=== PATIENT | female | born 1970 | race Caucasian/White ===

== ENCOUNTER → 2016-07-20 | Outpatient (CLI) | payer OTHER ==
[~2016-07-20] MED LIST: CALCTAB43 PO; CELE10TA PO; D 50CAP PO; MULTCAP PO; NEXI40CA PO; SING10TA32 PO; VITA500C24 PO; XYZA5TAB2 PO
--- NOTE | 2016-07-20 09:06 | REPMRS ---
Patient History The patient states she had a clinical breast exam in 2015. Family history of breast cancer in mother at age 64. Priors done at [facility] Digital Mammo Screening Bilat: July 20, 2016 - Exam #: [id number] Bilateral CC and MLO view(s) were taken. Technologist: [place], Technologist Prior study comparison: January 10, 2014, digital bilateral screening mammo, performed at [facility]. January 05, 2011, digital bilateral screening mammo, performed at [facility]. December 18, 2009, digital bilateral screening mammo, performed at [facility]. FINDINGS: There are scattered fibroglandular densities. There has been no change in the appearance of the mammogram from the prior studies. There is a mild amount of scattered fibroglandular density which is fairly symmetric. There is no interval development of dominant mass, architectural distortion, or clustered microcalcification suggestive of malignancy. ASSESSMENT: BI-RADS/ACR category 1 mammogram. Negative. Recommendation Routine screening mammogram in 1 year (for women over age 40). This mammogram was interpreted with the aid of an FDA-approved computer-aided dectection system. Electronically Signed By: Micah Fairchild MD 07/20/16 0905
== END ==
LOC: M RAD 08:03
PROVIDERS: ATTEND Internal Medicine
DX: Z12.31 Encounter for screening mammogram for malignant neoplasm of breast (principal)

== ENCOUNTER → 2016-08-11 | Outpatient (REF) | payer OTHER ==
[2016-08-11 16:10] LABS: ALBUMIN/GLOBULIN RATIO 1.48 (1.00-1.93); ALKALINE PHOSPHATASE 66 U/L (45-117); ALT/SGPT 45 U/L (12-78); AMYLASE 24 U/L (25-115); ANION GAP 7 MEQ/L (8-16); AST/SGOT 16 U/L (15-37); BILIRUBIN,TOTAL 0.4 MG/DL (0.2-1.0); BLOOD UREA NITROGEN 13 MG/DL (7-18); CALCIUM LEVEL 8.8 MG/DL (8.5-10.1); CARBON DIOXIDE LEVEL 27 MEQ/L (21-32); CHLORIDE LEVEL 104 MEQ/L (98-107); CREATININE FOR GFR 0.83 MG/DL (0.55-1.02); GLOMERULAR FILTRATION RATE > 60.0 (>58); GLUCOSE, FASTING 116 MG/DL (70-105); POTASSIUM SERUM 4.1 MEQ/L (3.5-5.1); SODIUM LEVEL 138 MEQ/L (136-145); TOTAL PROTEIN 6.7 GM/DL (6.4-8.2)
== END ==
LOC: M SFHCPLAZ 12:23
PROVIDERS: ATTEND Internal Medicine
DX: R11.2 Nausea with vomiting, unspecified (principal)

== ENCOUNTER → 2016-08-19 | Outpatient (CLI) | payer OTHER ==
[~2016-08-19] MED LIST changes: +GASTROGRAFIN SOLUTION 30ML (Q9963) As Ordered ONE; +ISOVUE-370 76% 100ML VIAL (Q9967) As Ordered ONE
--- NOTE | 2016-08-20 05:16 | REP ---
Clinical: Abdominal pain with vomiting. Technique: Axial contrast enhanced images from the lung bases to the pubic symphysis using oral and 100 ml Isovue 370 intravenous contrast material with precontrast images of the abdomen as well as coronal and sagittal re-formations. Comparison: 09/04/2011. Findings: Lung bases are relatively clear. Visualized heart and pericardium normal. Liver, spleen, pancreas, bilateral adrenal glands are normal. Kidneys demonstrate solitary 1 mm nonobstructing renal calculi bilaterally without perinephric stranding or hydroureteronephrosis. The enteric system is without obstruction or acute inflammatory process. Normal terminal ileum and appendix identified in the right lower quadrant. Pelvis demonstrates normal bladder and age-appropriate prostate/seminal vesicles. Sigmoid diverticulosis noted without acute diverticulitis. No ascites. No free air. No intraperitoneal or retroperitoneal adenopathy. Abdominal aorta and vasculature appears normal. Surrounding musculoskeletal structures are intact. Impression: 1. Bilateral 1 mm nonobstructing renal calculi. 2. Sigmoid diverticula without acute diverticulitis. 3. No further acute intra-abdominal or pelvic pathology appreciated. Signed by Kong Bowie MD 08/20/2016 05:07 A
== END ==
LOC: M RAD 15:46
PROVIDERS: ATTEND Internal Medicine
DX: R10.9 Unspecified abdominal pain (principal); R11.10 Vomiting, unspecified

== ENCOUNTER → 2017-03-01 | Outpatient (REF) | payer OTHER | LOC: M LAB REF 18:53 | DX: N30.00 Acute cystitis without hematuria (principal) ==

== ENCOUNTER → 2017-04-01 | Outpatient (CLI) | payer OTHER | LOC: M RAD 16:12 | DX: J32.0 Chronic maxillary sinusitis (principal) | CPT/HCPCS: 70486 ==

== ENCOUNTER → 2017-06-27 | Outpatient (REF) | payer OTHER | LOC: M SFHCPLAZ 16:56 | DX: N20.0 Calculus of kidney (principal) | CPT/HCPCS: 82360 ==

== ENCOUNTER → 2018-01-18 | Outpatient (REF) | payer OTHER ==
[2018-01-18 13:38] LABS: ESTIMATED AVERAGE GLUCOSE 134 MG/DL (60-110); HEMOGLOBIN A1c 6.3 %
[2018-01-18 13:55] LABS: ALBUMIN/GLOBULIN RATIO 1.21 (1.00-1.93); ALKALINE PHOSPHATASE 73 U/L (45-117); ALT/SGPT 33 U/L (12-78); ANION GAP 6 MEQ/L (8-16); AST/SGOT 19 U/L (7-37); BILIRUBIN,TOTAL 0.3 MG/DL (0.2-1.0); BLOOD UREA NITROGEN 22 MG/DL (7-18); CALCIUM LEVEL 8.9 MG/DL (8.5-10.1); CARBON DIOXIDE LEVEL 28 MEQ/L (21-32); CHLORIDE LEVEL 105 MEQ/L (98-107); CHOLESTEROL LEVEL 180 MG/DL (<200); CREATININE FOR GFR 0.78 MG/DL (0.55-1.30); GLOMERULAR FILTRATION RATE > 60.0 (>58); GLUCOSE, FASTING 77 MG/DL (70-100); HDL CHOLESTEROL 48 MG/DL (>40); LDL CHOLESTEROL 115 MG/DL (<100); NON-HDL-C 132 MG/DL; POTASSIUM SERUM 4.4 MEQ/L (3.5-5.1); SODIUM LEVEL 139 MEQ/L (136-145); TOTAL 25(OH) VITAMIN D 80.8 NG/ML (30.0-100.0); TOTAL PROTEIN 7.3 GM/DL (6.4-8.2); TRIGLYCERIDES LEVEL 84 MG/DL (<150)
== END ==
LOC: M SFHCPLAZ 11:14
DX: Z00.00 Encounter for general adult medical examination without abnormal findings (principal); R73.01 Impaired fasting glucose; E55.9 Vitamin D deficiency, unspecified
CPT/HCPCS: 84443

== ENCOUNTER → 2018-09-14 | Outpatient (CLI) | payer OTHER ==
[~2018-09-14] MED LIST changes: -CALCTAB43 PO; +CALCTAB74 PO; -GASTROGRAFIN SOLUTION 30ML (Q9963) As Ordered ONE; -ISOVUE-370 76% 100ML VIAL (Q9967) As Ordered ONE
[2018-09-14 16:56] LABS: FREE T4 0.94 NG/DL (0.76-1.46); THYROID STIMULATING HORMONE 1.44 uIU/ML (0.358-3.740)
== END ==
LOC: M LAB 15:27
PROVIDERS: ATTEND Internal Medicine Gastroenterology
DX: K58.2 Mixed irritable bowel syndrome (principal)

== ENCOUNTER 2018-11-10 10:18 | Day surgery (SDC) | payer OTHER ==
[~2018-11-10] VITALS: Ht 152.4 cm; Wt 83.5 kg
[~2018-11-10 10:18] MED LIST changes: +CALCCAP4 PO; +GLUC500T PO; +LEVOTAB10 PO; +LINZ145C PO; +NS 1,000 ML IV ONE
[2018-11-10] MEDS ORDERED: fentaNYL 100 MCG/2 ML INJECTION (J3010) As Ordered ONE (12:03)
[2018-11-10] MEDS ORDERED: PROPOFOL 200 MG/20 ML VIAL As Ordered ONE ×2 (12:04→12:20)
[2018-11-10] MEDS ORDERED: LIDOCAINE 2% INJ 100 MG/5 ML SDV (FOR ANES.) As Ordered ONE (12:05)
--- NOTE | 2018-11-10 12:54 | ROOR ---
Patient Name: Kavya Christina Procedure Date: 11/10/2018 12:20 PM Date of : 1970 Age: 48 Room: [facility] Gender: Female Note Status: Finalized Procedure: Upper GI endoscopy Indications: Abdominal pain, Suspected irritable bowel syndrome Providers: Lino CHA MD Referring MD: Ashok Rae MD Requesting Provider: Medicines: Monitored Anesthesia Care Complications: No immediate complications. Procedure: Pre-Anesthesia Assessment: - The heart rate, respiratory rate, oxygen saturations, blood pressure, adequacy of pulmonary ventilation, and response to care were monitored throughout the procedure. The Endoscope was introduced through the mouth, and advanced to the third part of duodenum. The upper GI endoscopy was accomplished without difficulty. The patient tolerated the procedure well. Findings: The esophagus was normal. The stomach was normal. The examined duodenum was normal. Biopsies for histology were taken with a cold forceps in the second portion of the duodenum and in the third portion of the duodenum for evaluation of celiac disease. Impression: - Normal esophagus. - Normal stomach. - Normal examined duodenum. - Biopsies were taken with a cold forceps for evaluation of celiac disease. Recommendation: - Perform a colonoscopy today. - Telephone endoscopist for pathology results in 2 weeks. Lino Cha MD Lino CHA MD 11/10/2018 12:53:33 PM Electronically signed by Lino CHA MD Number of Addenda: 0 Note Initiated On: 11/10/2018 12:20 PM Estimated Blood Loss: Estimated blood loss: none.
--- NOTE | 2018-11-10 12:59 | ROOR ---
Patient Name: Kavya Christina Procedure Date: 11/10/2018 12:20 PM Date of : 1970 Age: 48 Room: [facility] Gender: Female Note Status: Finalized Procedure: Colonoscopy Indications: Generalized abdominal pain, Irritable bowel syndrome with constipation, Mixed irritable bowel syndrome, Change in bowel habits Providers: Lino CHA MD Referring MD: Ashok Rae MD Requesting Provider: Medicines: Monitored Anesthesia Care Complications: No immediate complications. Procedure: Pre-Anesthesia Assessment: - The heart rate, respiratory rate, oxygen saturations, blood pressure, adequacy of pulmonary ventilation, and response to care were monitored throughout the procedure. The Colonoscope was introduced through the anus and advanced to 10 cm into the ileum. The colonoscopy was performed without difficulty. The patient tolerated the procedure well. The quality of the bowel preparation was adequate. Findings: The perianal and digital rectal examinations were normal. A 5 mm polyp was found in the splenic flexure. The polyp was sessile. The polyp was removed with a cold snare. Resection and retrieval were complete. Internal hemorrhoids were found during retroflexion. The hemorrhoids were medium-sized. The exam was otherwise normal throughout the examined colon. The terminal ileum appeared normal. Biopsies for histology were taken with a cold forceps from the entire colon for evaluation of microscopic colitis. Impression: - One 5 mm polyp at the splenic flexure, removed with a cold snare. Resected and retrieved. - Internal hemorrhoids. - The colon is somewhat redundant, but otherwise normal - The examined portion of the ileum was normal. - Biopsies were taken with a cold forceps from the entire colon for evaluation of microscopic colitis. Recommendation: - Repeat colonoscopy in 5 years for surveillance. - Telephone endoscopist for pathology results in 2 weeks. - To increase effect of Linzess, you can change Linzess dosing to WITH Meal/Food. Lino Cha MD Lino CHA MD 11/10/2018 12:58:53 PM Electronically signed by Lino CHA MD Number of Addenda: 0 Note Initiated On: 11/10/2018 12:20 PM Estimated Blood Loss: Estimated blood loss: none.
[2018-11-10 13:15] VITALS: BP 128/76
== END 2018-11-10 13:27 | disposition home or self-care (01) ==
LOC: M OPP 10:18
PROVIDERS: ATTEND Internal Medicine Gastroenterology
DX: D12.3 Benign neoplasm of transverse colon (principal); K64.8 Other hemorrhoids; R10.84 Generalized abdominal pain; K58.1 Irritable bowel syndrome with constipation; K58.2 Mixed irritable bowel syndrome; R19.4 Change in bowel habit; E11.9 Type 2 diabetes mellitus without complications; Z79.84 Long term (current) use of oral hypoglycemic drugs; Z79.899 Other long term (current) drug therapy; Z88.8 Allergy status to other drugs, medicaments and biological substances; Z91.040 Latex allergy status
CPT/HCPCS: 43239; 45380; 45385; 88305; J3010

== ENCOUNTER → 2019-01-19 | Outpatient (REF) | payer OTHER ==
[~2019-01-19] MED LIST changes: -NS 1,000 ML IV ONE
[2019-01-19 09:36] LABS: HEMATOCRIT 45.8 % (36.0-47.0); HEMOGLOBIN 14.3 g/dl (12.0-15.5); MEAN CORPUSCULAR HEMOGLOBIN 29.1 pg (27.0-33.0); MEAN CORPUSCULAR HGB CONC 31.2 g/dl (32.0-36.5); MEAN CORPUSCULAR VOLUME 93.1 fl (80.0-96.0); PLATELET COUNT, AUTOMATED 309 10^3/uL (150-450); RED BLOOD COUNT 4.92 10^6/uL (4.00-5.40); WHITE BLOOD COUNT 10.2 10^3/uL (4.0-10.0)
[2019-01-19 10:13] LABS: ALBUMIN 3.9 GM/DL (3.2-5.2); ALT/SGPT 32 U/L (12-78); AMYLASE 23 U/L (25-115); BILIRUBIN,TOTAL 0.3 MG/DL (0.2-1.0); BLOOD UREA NITROGEN 21 MG/DL (7-18); CALCIUM LEVEL 9.7 MG/DL (8.5-10.1); CARBON DIOXIDE LEVEL 29 MEQ/L (21-32); CHLORIDE LEVEL 107 MEQ/L (98-107); CHOLESTEROL LEVEL 179 MG/DL (<200); CHOLESTEROL RISK RATIO 3.509 (<5); CREATININE FOR GFR 0.71 MG/DL (0.55-1.30); GLOMERULAR FILTRATION RATE > 60.0 (>58); GLUCOSE, FASTING 106 MG/DL (70-100); HDL CHOLESTEROL 51 MG/DL (>40); HEMOGLOBIN A1c 6.1 %; LDL CHOLESTEROL 109 MG/DL (<100); LIPASE 132 U/L (73-393); NON-HDL-C 128 MG/DL; POTASSIUM SERUM 4.9 MEQ/L (3.5-5.1); SODIUM LEVEL 139 MEQ/L (136-145); TOTAL PROTEIN 7.1 GM/DL (6.4-8.2); TRIGLYCERIDES LEVEL 93 MG/DL (<150)
== END ==
LOC: M SFHCPLAZ 08:08
PROVIDERS: ATTEND Internal Medicine
DX: Z00.00 Encounter for general adult medical examination without abnormal findings (principal); R73.01 Impaired fasting glucose; R10.13 Epigastric pain

== ENCOUNTER → 2020-01-22 | Outpatient (REF) | payer OTHER ==
[2020-01-22 11:02] LABS: ALBUMIN 3.9 GM/DL (3.2-5.2); ALT/SGPT 20 U/L (12-78); BILIRUBIN,TOTAL 0.3 MG/DL (0.2-1.0); BLOOD UREA NITROGEN 16 MG/DL (7-18); CALCIUM LEVEL 9.3 MG/DL (8.5-10.1); CARBON DIOXIDE LEVEL 30 MEQ/L (21-32); CHLORIDE LEVEL 108 MEQ/L (98-107); CREATININE FOR GFR 0.82 MG/DL (0.55-1.30); GLOMERULAR FILTRATION RATE > 60.0 (>51); GLUCOSE, FASTING 114 MG/DL (70-100); POTASSIUM SERUM 4.7 MEQ/L (3.5-5.1); SODIUM LEVEL 141 MEQ/L (136-145); TOTAL PROTEIN 7.3 GM/DL (6.4-8.2)
[2020-01-22 11:09] LABS: HEMOGLOBIN A1c 6.1 %
== END ==
LOC: M SFHCPLAZ 08:10
PROVIDERS: ATTEND Internal Medicine
DX: R73.01 Impaired fasting glucose (principal)

== ENCOUNTER → 2021-01-26 | Outpatient (REF) | payer OTHER | LOC: M SFHCPLAZ 07:58 | PROVIDERS: ATTEND Internal Medicine | DX: Z00.00 Encounter for general adult medical examination without abnormal findings (principal); R19.4 Change in bowel habit; R73.01 Impaired fasting glucose; L74.512 Primary focal hyperhidrosis, palms ==

== ENCOUNTER → 2021-01-26 | Outpatient (CLI) | payer OTHER ==
[2021-01-26 13:35] LABS: BASO # 0.1 10^3/uL (0.0-0.2); BASO % 0.6 % (0.0-1.0); EOS # 0.2 10^3/uL (0.0-0.5); HEMATOCRIT 43.1 % (36.0-47.0); HEMOGLOBIN 13.9 g/dl (12.0-15.5); LYMPH # 2.6 10^3/uL (1.5-5.0); LYMPH % 29.4 % (24.0-44.0); MEAN CORPUSCULAR HEMOGLOBIN 29.5 pg (27.0-33.0); MEAN CORPUSCULAR HGB CONC 32.3 g/dl (32.0-36.5); MEAN CORPUSCULAR VOLUME 91.5 fl (80.0-96.0); MONO # 0.5 10^3/uL (0.0-0.8); MONO % 6.1 % (2.0-8.0); NEUTROPHILS # 5.4 10^3/uL (1.5-8.5); NEUTROPHILS % 61.6 % (36.0-66.0); PLATELET COUNT, AUTOMATED 294 10^3/uL (150-450); RED BLOOD COUNT 4.71 10^6/uL (4.00-5.40); WHITE BLOOD COUNT 8.7 10^3/uL (4.0-10.0)
[2021-01-26 14:30] LABS: ALBUMIN 3.5 GM/DL (3.2-5.2); ALT/SGPT 30 U/L (12-78); BILIRUBIN,TOTAL 0.3 MG/DL (0.2-1.0); BLOOD UREA NITROGEN 14 MG/DL (7-18); CALCIUM LEVEL 8.9 MG/DL (8.5-10.1); CARBON DIOXIDE LEVEL 25 MEQ/L (21-32); CHLORIDE LEVEL 109 MEQ/L (98-107); CHOLESTEROL LEVEL 168 MG/DL (<200); CHOLESTEROL RISK RATIO 3.652 (<5); CREATININE FOR GFR 0.72 MG/DL (0.55-1.30); GLOMERULAR FILTRATION RATE > 60.0 (>51); GLUCOSE, FASTING 113 MG/DL (70-100); HDL CHOLESTEROL 46 MG/DL (>40); LDL CHOLESTEROL 109 MG/DL (<100); NON-HDL-C 122 MG/DL; POTASSIUM SERUM 4.6 MEQ/L (3.5-5.1); SODIUM LEVEL 140 MEQ/L (136-145); THYROID STIMULATING HORMONE 0.693 uIU/ML (0.358-3.740); TOTAL PROTEIN 6.7 GM/DL (6.4-8.2); TRIGLYCERIDES LEVEL 64 MG/DL (<150)
[2021-01-26 14:34] LABS: MALB URINE SIEMENS 38.4 MG/L; MAU/CREAT RATIO 15.4 MCG/MG (0.0-30.0)
== END ==
LOC: M PLALAB 08:19
PROVIDERS: ATTEND Internal Medicine
DX: Z00.00 Encounter for general adult medical examination without abnormal findings (principal); R73.01 Impaired fasting glucose; R19.4 Change in bowel habit; L74.512 Primary focal hyperhidrosis, palms

== ENCOUNTER → 2021-03-18 | Outpatient (CLI) | payer OTHER | LOC: M SLEEP HO 10:22 | PROVIDERS: ATTEND Internal Medicine | DX: R40.0 Somnolence (principal) ==

== ENCOUNTER → 2021-11-23 | Outpatient (CLI) | payer OTHER | LOC: M LABSMTC 11:02 | PROVIDERS: ATTEND Pediatrics | DX: Z11.52 Encounter for screening for COVID-19 (principal) | CPT/HCPCS: 87635; C9803 ==

== ENCOUNTER → 2023-09-20 | Outpatient (REF) | payer OTHER ==
[~2023-09-20] MED LIST changes: +MONT-5 PO; -SING10TA32 PO
== END ==
LOC: M LAB REF 16:19
PROVIDERS: ATTEND Nurse Practitioner Family
DX: R53.83 Other fatigue (principal)

== ENCOUNTER 2024-07-02 08:17 | Day surgery (SDC) | payer OTHER ==
[~2024-07-02] VITALS: Ht 152.4 cm; Wt 76.2 kg
[~2024-07-02 08:17] MED LIST changes: +CALC1TAB63 PO; +CITA10TA7 PO; +D 50CAP2 PO; +ESOM40CA35 PO; +LIDOCAINE 2% 100MG/5ML SDV (FOR ANES.) As Ordered ONE; +LINZ72CA PO; +MONT10TA97 PO; +SPIR100T3 PO; +THERTAB52 PO; +propofoL 200 MG/20 ML VIAL As Ordered ONE
[2024-07-02 10:32] VITALS: BP 124/58; O2SAT 96
== END 2024-07-02 10:37 | disposition home or self-care (01) ==
LOC: M OPP 08:17
PROVIDERS: ATTEND Internal Medicine Gastroenterology
DX: D12.2 Benign neoplasm of ascending colon (principal); K64.8 Other hemorrhoids; Z86.0100 Personal history of colon polyps, unspecified; R12 Heartburn; Z88.8 Allergy status to other drugs, medicaments and biological substances; Z79.899 Other long term (current) drug therapy; Z87.891 Personal history of nicotine dependence

== ENCOUNTER 2024-07-12 08:38 | Emergency (ER) | payer OTHER ==
[~2024-07-12] VITALS: Ht 152.4 cm; Wt 75.9 kg
[~2024-07-12 08:38] MED LIST changes: -LIDOCAINE 2% 100MG/5ML SDV (FOR ANES.) As Ordered ONE; -propofoL 200 MG/20 ML VIAL As Ordered ONE
[2024-07-12] MEDS: methocarbamoL 500 MG TAB PO ONE (12:10)
[2024-07-12] MEDS: KETOROLAC 60MG 2ML VIAL IM ONE (12:10)
[2024-07-12] MEDS ORDERED: METH-1164 PO (12:37)
[2024-07-12 12:46] VITALS: BP 129/72; TEMP 97; O2SAT 96
== END 2024-07-12 12:49 | disposition home or self-care (01) ==
LOC: M ED 08:38 → EDBD 08:38 → M ED 12:49
DX: M62.838 Other muscle spasm (principal); Z04.1 Encounter for examination and observation following transport accident; R73.03 Prediabetes; K21.9 Gastro-esophageal reflux disease without esophagitis; K58.1 Irritable bowel syndrome with constipation; Z79.899 Other long term (current) drug therapy; Z88.8 Allergy status to other drugs, medicaments and biological substances
CPT/HCPCS: 71045; 73030; 96372; 99284; J1885

== ENCOUNTER → 2024-07-18 | Outpatient (CLI) | payer OTHER ==
[~2024-07-18] MED LIST changes: +METH-1164 PO
== END ==
LOC: M RAD 15:44
PROVIDERS: ATTEND Nurse Practitioner Family
DX: M54.2 Cervicalgia (principal)